=== PATIENT | female | born 1970 | race Asian ===

== ENCOUNTER 2019-08-19 18:02 | Emergency (ER) | payer OTHER ==
[~2019-08-19] VITALS: Ht 152.4 cm; Wt 54.4 kg
--- NOTE | 2019-08-19 18:07 | Emergency Room Report ---
History of Present Illness General Source: EMS Present Illness HPI Patient is a 49-year-old female with history of ventilator dependence sent in by nursing facility after G-tube was dislodged. Patient's G-tube was replaced by facility. Patient was sent in for evaluation of G-tube placement.Patient is nonverbal and trach and vent dependent. History is obtained from EMS and old medical record. Allergies: Coded Allergies: No Known Allergies (Unverified , 08/19/19) Patient History Past Medical History: see triage record Reviewed Nursing Documentation: PMH: Agreed; PSxH: Agreed Review of Systems All Other Systems: limited - Review of systems: Review systems is limited by patient's being a poor historian Physical Exam General Appearance: alert, Chronically Ill ENT: other - tracheostomy Neck: tracheotomy Respiratory: lungs clear Cardiovascular #1: normal peripheral pulses Gastrointestinal: soft, other - G-tube stoma with slight bleeding without evident erythema or discharge. Musculoskeletal: decreased range of motion Neurologic: aphasia Psychiatric: mood/affect normal Skin: no rash Medical Decision Making Diagnostic Impression: Primary Impression: Malfunction of percutaneous endoscopic gastrostomy (PEG) tube ER Course Patient presented for G-tube evaluation. Differential diagnosis include was not limited to malposition, adequate G-tube placement among others. KUB was ordered due to patient's recent G-tube manipulation. G-tube was not changed in the emergency department was replaced at the facility. Sterile dressing was applied and bleeding was controlled. KUB read by radiology showed no evident leakage of contrast as well as dye within the gastric lumen. Patient was sent back to her facility via ambulance. Patient was return if any worsening of condition or other concerns. Status: improved Disposition: [facility] Condition: Stable Brent Betancur MD Aug 19, 2019 18:07
--- NOTE | 2019-08-19 18:20 | NUR ---
ED Nurse Note: Pt brought in by ambulance due to G-tube displacement. Pt G tube came out in SNF and SNF put it back in, but they are concerned because there is small sanguineous discharge from g tube site. G-tube site has erythema and swelling. Pt is awake, alertx0, nnonverbal, only reactive to painful stimulation. Pt has pressure ulcer on coccyx-pics input in computer. Pt temp 99.6F. Pt ROM on all 4 extremities is 1/5. Pt has indent on R side of head from past sx. Pt g-tube flushed. has seen pt.
[2019-08-19 19:01] VITALS: BP 117/78
--- NOTE | 2019-08-19 19:22 | NUR ---
ED Nurse Note: G tube dressing changed per ERMD request
--- NOTE | 2019-08-19 20:20 | Diagnostic Imaging Report ---
Indication: Postgastrostomy replacement Technique: Supine view of the abdomen after injection of water-soluble contrast into gastrostomy Comparison: none Findings: Contrast opacifies the stomach. No contrast extravasation is demonstrated. The bowel gas pattern is unremarkable. Tubing is noted over the left abdomen and left upper quadrant. The nature of this is uncertain, possibly a jejunostomy or abandoned ventriculoperitoneal shunt tubing Impression: Satisfactory position of gastrostomy tube No acute abnormality Unusual tubing over the left abdomen, as described. Correlate with clinical history This agrees with the preliminary interpretation provided overnight by [facility] teleradiology service.
[2019-08-19 20:41] VITALS: BP 114/60
--- NOTE | 2019-08-19 22:00 | NUR ---
ED Nurse Note: Spoke with Kelly from [facility], informed patient will be going back
[2019-08-19 22:53] VITALS: BP 127/73
--- NOTE | 2019-08-19 23:15 | NUR ---
ED Nurse Note: pt's son at pt bedside
--- NOTE | 2019-08-19 23:19 | NUR ---
ER DISCHARGE NOTE: Patient is cleared to be discharged per ERMD, pt is mentating at baseline, on a mechanical ventilator with stable vital signs. RN from facility was given dc instructions, she was able to verbalize understanding, pt id band removed without complications. pt left with all belongings and was transported back to [facility] via [facility] and critical care transport [facility].
[2019-08-19 23:23] VITALS: BP 127/73
== END 2019-08-19 23:20 ==
LOC: EDBD 18:02 → EMR 20:38
DX: K94.23 Gastrostomy malfunction (principal); R47.01 Aphasia
CPT/HCPCS: 74018; 99283